=== PATIENT | male | born 1975 | race Caucasian/White ===

== ENCOUNTER 2017-09-18 05:33 | Day surgery (SDC) | payer BC ==
[2017-09-17 12:59] VITALS: BMI 36.9
--- NOTE | 2017-09-18 02:28 | HP ---
HISTORY OF PRESENT ILLNESS: Mr. Esparza is a very pleasant 42-year-old man who presents via referral f rom Dr. Levin's office at [facility] for evaluation of bilateral right greater than left C6 radicular pains and cervical neck pain. He has been doing this for about two years and unfo rtunately, it has been progressive over this time. He has recently attempted cervical epidural stero id injections with ____ and does feel that it helped, appears as a result of ____ and will just c ontinue to flare up again as I denied to have any construction equipment. I do not disagree. MRI fr om D1 reveals multilevel degenerative changes, most significant at C5-C6 reveals severe right-sided a nd moderate left-sided neural foraminal narrowing. He also has early Modic endplate changes at the s catherine level. This fits his symptoms rather well. He additionally reports that he has been dropping th ings with his right hand over the last few months. PAST MEDICAL HISTORY: Kidney stones, sleep disorder. CURRENT MEDICATIONS: Ambien. ALLERGIES: IV CONTRAST DYE. PAST SURGICAL HISTORY: Unspecified back surgery, lithotripsy, bilateral carpal tunnel release, unspe cified shoulder surgery, unspecified hip surgery. PHYSICAL EXAMINATION: The patient is alert and oriented x3. Gait is normal, no ataxia. Upper extre mity motor exam reveals normal left upper extremity strength and right upper extremity strength other than right hand opposition of the third through fifth digits to thumb grading 4/5. Cervical spine r cliff of motion was restricted by pain. ASSESSMENT: Cervical radiculopathy. PLAN: Dr. Nuno met with the patient, reviewed imaging and advocated for a C5-C6 ACDF. He explained to the patient the risks, benefits, and alternatives to the procedure. The patient expressed unders tanding and would like to move forward with surgery as discussed. I do believe the patient is mental ly competent and capable of making medical decisions for himself and we will move forward with surger y as planned. Johnathon Rosen PA-C dictating for Dr. Nuno.
[2017-09-18] MEDS ORDERED: Midazolam HCl 2 mg/2 ml Vial ONE (06:06)
[2017-09-18] MEDS ORDERED: Fentanyl 250 MCG/5 ML VIAL ONE (06:06)
[2017-09-18] MEDS ORDERED: Fentanyl 100 MCG/2 ML VIAL ONE ×4 (06:06→08:51)
[2017-09-18] MEDS ORDERED: CEFAZOLIN/Water 2 GM/20 ML SYRINGE ONE ×2 (06:19→11:18)
[2017-09-18] MEDS ORDERED: Thrombin 5000 UNITS/5 ML VIAL ONE (06:20)
[2017-09-18] MEDS ORDERED: Ketorolac Tromethamine 30 MG/ML VIAL ONE (08:22)
--- NOTE | 2017-09-18 08:41 | OP ---
DATE OF PROCEDURE: 09/18/2017 SURGEON: Karlo Nuno M.D. NURSE HEAD: Johnathon Rosen PA-C INDICATION: Pain. DIAGNOSIS: Cervical radiculopathy. PROCEDURE: Anterior cervical diskectomy and fusion, C5-6. ANESTHESIA: General. TECHNIQUE: The patient was brought into the operating room and placed under general anesthesia. He was placed on the table in a supine position. A transverse incision was planned over the lateral asp ect of the neck on the right. After prepping and draping, the incision was created. The underlying platysma muscle was identified and incised. A blunt tissue plane, anterior to the sternocleidomastoi d muscle, was used to gain access to the prevertebral space. Self-retaining retractors were placed i n the wound for optimal exposure. After confirming the appropriate level with serum fluoroscopy, an annulotomy was performed in the C5-6 disk space. All disk material as well as anterior and posterior osteophytes were removed. After complete decompression, a 7-mm lordotic PEEK cage packed with allog raft and autograft material was placed within the interbody space. An anterior cervical plate was th en fashioned in the front of the spine and secured with a total of 4 fixed screws. Midline and later al structures were inspected and found to be free from significant trauma. The wound was irrigated. Hemostasis was maintained throughout. The wound was then closed in anatomic layers and a pressure d ressing was applied. There were no known procedural complications.
[2017-09-18] MEDS ORDERED: HYDROcodone/Acetaminophen 5/325 mg Tablet ONE (10:40)
[2017-09-18] MEDS ORDERED: Lidocaine 1% PF 5 ML VIAL ONE (11:39)
[2017-09-18] MEDS ORDERED: Dexamethasone 20 MG/5 ML VIAL ONE (11:39)
[2017-09-18] MEDS ORDERED: Glycopyrrolate 0.2 MG/ML 5 ML SYRINGE ONE (11:39)
[2017-09-18] MEDS ORDERED: PROPOFOL 200 MG/20 ML VIAL ONE (11:39)
[2017-09-18] MEDS ORDERED: Ondansetron HCl/PF 4 MG/2 ML Vial ONE (11:39)
== END 2017-09-18 12:06 | disposition home or self-care (01) ==
LOC: SDC 05:33
PROVIDERS: ATTEND Neurological Surgery
PROC: 0RT30ZZ Resection of Cervical Vertebral Disc, Open Approach (ICD-10-PCS; principal; 2017-09-18)
PROC: 0RG10A0 Fusion of Cervical Vertebral Joint with Interbody Fusion Device, Anterior Approach, Anterior Column, Open Approach (ICD-10-PCS; principal; 2017-09-18)
DX: M54.12 Radiculopathy, cervical region (principal); G47.9 Sleep disorder, unspecified; Z79.899 Other long term (current) drug therapy; Z91.041 Radiographic dye allergy status; Z98.890 Other specified postprocedural states
CPT/HCPCS: 76001; 96374; C1713; C1776; J1100; J1885; J2001; J2250; J2405; J2704; J3010

== ENCOUNTER 2017-10-29 08:19 | Outpatient (CLI) | payer BC ==
--- NOTE | 2017-10-29 10:04 | RAD ---
CERVICAL SPINE FOUR VIEWS: HISTORY: Status post surgery (M54.12). TECHNIQUE: AP, lateral, open-mouth odontoid, and Swimmer's views of the cervical spine are obtained. FINDINGS: Images demonstrate ACDF with fusion of C5-C6. No other acute abnormalities seen. POS: C
== END 2017-10-29 08:20 | disposition home or self-care (01) ==
LOC: TBSIIMAG 08:19
PROVIDERS: ATTEND Neurological Surgery
DX: M54.12 Radiculopathy, cervical region (principal); Z98.1 Arthrodesis status
CPT/HCPCS: 72040